=== PATIENT | female | born 1970 | race Caucasian/White ===

== ENCOUNTER → 2016-07-03 | Outpatient (CLI) | payer OTHER ==
[~2016-07-03] MED LIST: CETI10TA20 PO; DOCU100C37 PO; IBUP-1780 PO; MULT-305 PO; OMEP40CA36 PO; OMG1KC PO; OXYC-465 PO
--- NOTE | 2016-07-05 19:14 | Diagnostic Imaging Report ---
Bilateral screening mammogram. The current study was also evaluated with a Computer Aided Detection (CAD) system. INDICATION: Screening. No current complaints stated on the questionnaire. COMPARISON: 10/18/2014. FINDINGS: The breasts are composed of heterogeneously dense parenchyma which may decrease mammographic sensitivity. No mass, architectural distortion, or suspicious cluster of calcification seen. Allowing for technique and positional differences, no suspicious change is seen. IMPRESSION: Dense breasts with no definite change. ACR BI-RADS Category 2: Benign findings. Result letter will be mailed to the patient. Note: At least 10% of breast cancer is not imaged by mammography. Dictated by: Dictated on workstation # [id number]
== END ==
LOC: RAD 08:25
PROVIDERS: ATTEND Obstetrics & Gynecology
DX: Z12.31 Encounter for screening mammogram for malignant neoplasm of breast (principal)
CPT/HCPCS: 77067

== ENCOUNTER → 2017-07-25 | Outpatient (CLI) | payer OTHER ==
--- NOTE | 2017-07-25 12:04 | Diagnostic Imaging Report ---
INDICATION: Routine screening. Comparison is made with prior study from 07/03/2016 and 10/18/2014. 2-D and 3-D bilateral screening mammography was performed with CAD. The current study was also evaluated with a Computer Aided Detection (CAD) system. Both breasts are heterogeneously dense, limiting the sensitivity of mammography. No dominant mass or malignant appearing microcalcifications are identified. The axillae are unremarkable. Impression: BI-RADS category one No mammographic features suspicious for malignancy are identified. ACR BI-RADS Category 1: Negative. Result letter will be mailed to the patient. Note: At least 10% of breast cancer is not imaged by mammography. Dictated by: Dictated on workstation # [id number]
== END ==
LOC: RAD 07:33
PROVIDERS: ATTEND Obstetrics & Gynecology
DX: Z12.31 Encounter for screening mammogram for malignant neoplasm of breast (principal)
CPT/HCPCS: 77067

== ENCOUNTER → 2018-09-24 | Outpatient (CLI) | payer OTHER ==
--- NOTE | 2018-09-24 09:39 | Diagnostic Imaging Report ---
Indication: Routine screening. Comparison is made to prior mammogram 07/25/2017 and 07/03/2016. 2-D and 3-D bilateral screening mammography was performed with CAD. Both breasts remain heterogeneously dense, limiting the sensitivity of mammography. The parenchymal pattern is stable. No mass or malignant-appearing microcalcifications are seen. Axillae are unremarkable. Impression: BI-RADS category 1 No mammographic features suspicious for malignancy are identified. ACR BI-RADS Category 1: Negative. Result letter will be mailed to the patient. Note: At least 10% of breast cancer is not imaged by mammography. Dictated by: Dictated on workstation # [id number]
== END ==
LOC: RAD 07:20
PROVIDERS: ATTEND Obstetrics & Gynecology
DX: Z12.31 Encounter for screening mammogram for malignant neoplasm of breast (principal)
CPT/HCPCS: 77067

== ENCOUNTER → 2019-10-21 | Outpatient (CLI) | payer OTHER ==
[~2019-10-21] MED LIST changes: -CETI10TA20 PO; +CETI10TA21 PO; +OMEP40CA27 PO; -OMEP40CA36 PO
--- NOTE | 2019-10-21 13:28 | Diagnostic Imaging Report ---
INDICATION: Routine screening. COMPARISON: 09/24/2018 and 07/25/2017. TECHNIQUE: 2D and 3D bilateral screening mammography was performed with CAD. FINDINGS: Both breasts are heterogeneously dense, limiting the sensitivity of mammography. The parenchymal pattern is stable. No mass or malignant appearing microcalcifications are seen. The axillae are unremarkable. IMPRESSION: No mammographic features suspicious for malignancy are identified. ACR BI-RADS Category 1: Negative. Result letter will be mailed to the patient. Note: At least 10% of breast cancer is not imaged by mammography. Dictated by: Dictated on workstation # [id number]
== END ==
LOC: RAD 07:45
PROVIDERS: ATTEND Obstetrics & Gynecology
DX: Z12.31 Encounter for screening mammogram for malignant neoplasm of breast (principal)
CPT/HCPCS: 77063; 77067

== ENCOUNTER 2020-06-24 05:30 | Outpatient (RCR) | payer OTHER ==
[~2020-06-24] VITALS: Ht 154.9 cm; Wt 71.8 kg
[~2020-06-24 05:30] MED LIST changes: +ATOR10TA66 PO; -CETI10TA21 PO; +CETI10TA49 PO; +CHOL200025 PO; +CYAN500T44 PO; +FLUT9.9S NS; -OXYC-465 PO; +OXYC-556 PO
== END 2020-06-24 09:18 | disposition home or self-care (01) ==
LOC: PREOP 05:30
PROVIDERS: ATTEND Surgery
DX: Z01.812 Encounter for preprocedural laboratory examination (principal); K62.5 Hemorrhage of anus and rectum; Z87.19 Personal history of other diseases of the digestive system; Z20.822 Contact with and (suspected) exposure to COVID-19
CPT/HCPCS: 87635

== ENCOUNTER 2020-06-27 09:44 | Day surgery (SDC) | payer OTHER ==
[2020-06-27] VITALS (7 sets, daily range): BP systolic 96–125; BP diastolic 60–92
[~2020-06-27] VITALS: Ht 154.9 cm; Wt 71.8 kg
[2020-06-27] MEDS ORDERED: LACTATED RINGERS 1,000 ML IV ONE (09:59)
[2020-06-27] MEDS ORDERED: LACTATED RINGERS 1,000 ML IV STA (10:03)
[2020-06-27] MEDS ORDERED: HURRICAINE EXT TUBE (BENZOCAINE) XX PRN (10:15)
--- NOTE | 2020-06-27 11:00 | Progress Note-Pre Operative ---
Pre-Operative Progress Note H&P Reviewed The H&P was reviewed, patient examined and no changes noted. Time Seen by Provider: 10:57 Date H&P Reviewed: June 27, 2020 Time H&P Reviewed: 10:57 Pre-Operative Diagnosis: Hx of Caba's, Rectal bleed IRMA CRISOSTOMO DO June 27, 2020 11:00
[2020-06-27] MEDS ORDERED: PROPOFOL INJECTION 50 ML IV ONE (11:16)
[2020-06-27] MEDS ORDERED: MIDAZOLAM 2 MG/2 ML (VERSED) VIAL ONE (11:16)
--- NOTE | 2020-06-27 11:50 | Progress Note-Post Operative ---
Post-Operative Progess Note Surgeon (s)/Loin Puller (s) Surgeon IRMA CRISOSTOMO DO Loin Puller: none Pre-Operative Diagnosis Hx of Caba's, Rectal bleed Post-Operative Diagnosis Gastritis Gastric Polyps colon polyp diverticula int hemorrhoids anal fissure Procedure & Operative Findings Date of Procedure 06/27/20 Procedure Performed/Findings EGD with bx Colon with hot bx Anesthesia Type IV sedation by AERIAL PLANTING AND CULTIVATION MANAGER Estimated Blood Loss Estimated blood loss (mL): scant Specimens/Packing Specimens Removed antral bx body of stomach bx GE jxn bx Desc colon polyp IRMA CRISOSTOMO DO June 27, 2020 11:50
--- NOTE | 2020-06-27 11:51 | Endoscopy Discharge Instruct ---
Endo Procedure/Findings Findings 1.: Gastritis, Other Findings (Gastric polyp) 2.: Polyp 3.: Diverticulosis 4.: Internal Hemorrhoids, Other Findings (anal fissure) Discharge Instructions - Activity: You might feel a little sleepy until tomorrow. This is due to the medicine you received to relax you. Until tomorrow, you should: NOT drive a car, operate machinery or power tools. NOT drink any alcoholic beverages. NOT make any important decisions or sign importortant papers. Do not return to work until tomorrow, unless otherwise instructed. Resume previous activities tomorrow. Diet: Start by taking liquids. If you tolerate liquids, advance to solid food. 1.: EGD in 3 years 2.: Colonscopy in 5 years Notify Physician - If you experience excessive bleeding, unusual abdominal pain, fever, or chest pain, contact your doctor immediately. IRMA CRISOSTOMO DO June 27, 2020 11:51
--- NOTE | 2020-06-27 12:47 | Anesthesia-General Post-Op ---
MAC Patient Condition Mental Status/LOC: Same as Preop Cardiovascular: Satisfactory Nausea/Vomiting: Absent Respiratory: Satisfactory Pain: Controlled Complications: Absent Post Op Complications Complications None Follow Up Care/Instructions Patient Instructions None needed. Anesthesiology Discharge Order Discharge Order Patient is doing well, no complaints, stable vital signs, no apparent adverse anesthesia problems. No complications reported per nursing. EDDA HICKMAN CRNA June 27, 2020 12:47
--- NOTE | 2020-06-27 21:10 | OPERATIVE REPORT ---
DATE OF SERVICE: 06/27/2020 PREOPERATIVE DIAGNOSIS: History of Caba's esophagus and rectal bleed. POSTOPERATIVE DIAGNOSES: Gastritis, gastric polyps, colon polyps, diverticula, internal hemorrhoids and anal fissure. PROCEDURES: 1. EGD with biopsy. 2. Colonoscopy with hot biopsy. SURGEON: Jules Garrett DO FIRE FIGHTER AIRPORT: None. ANESTHESIA: IV sedation by the SUPERVISOR AIRCRAFT CLEANING. SPECIMEN: Biopsy from the antrum, biopsy from the body of stomach and biopsy from the GE junction and then biopsy of the descending colon polyp. BLOOD LOSS: Scant. FLUIDS: Per anesthesia. POSTOPERATIVE CONDITION: Stable. INDICATION FOR PROCEDURE: The patient is a 49-year-old female who has a history of Caba's esophagus, needed a workup and she had some rectal bleeding, needed a colonoscopy. FINDINGS: The patient had some gastritis in the stomach and she had some gastric polyps. In the colon, she had a polyp in the descending colon, some diverticula in the descending and sigmoid colon as well as internal hemorrhoids and what looked like an anal fissure. PROCEDURE NOTE: After informed consent was obtained, the patient was brought to the endoscopy suite, placed in bed in left lateral decubitus position. She was administered IV sedation by the SUPERVISOR AIRCRAFT CLEANING who then monitored her vitals the entire time, heart rate, blood pressure and pulse ox and we started with the EGD, placed the scope down the mouth through the esophagus into the stomach, noted some gastritis at the antrum, took a picture, pushed into the duodenum. Duodenum looked fine, took a picture. Pulled back, did a biopsy of the antrum. Retroflexed the scope. She did not really have a hiatal hernia. Did a biopsy of the body of stomach and then pulled the scope into the GE junction, did a biopsy here, pushed the scope back into the stomach, suctioned all the air out. I did see some gastric polyps down into the antrum, did look like there are fundic gland polyps. Elected to leave these alone and then pulled the scope up the esophagus and out the mouth. Switched camera, switched gloves, went down below, started the colonoscopy. Pushed all the way into about 140 cm, able to get to the cecum, took a picture of appendiceal orifice, noted the ileocecal valve and then slowly withdrew the scope insufflating, looked circumferential schafer looking at the cecum, up the ascending colon to the hepatic flexure, then down the transverse colon, splenic flexure, into the descending colon and in the descending colon, saw a polyp on a fold, took a picture of this and then did a hot biopsy of this. Continued down and saw some diverticula, took a picture and then continued into the sigmoid and into the rectum, retroflexed in rectal vault, saw some minimal internal hemorrhoids, took a picture of this, then pulled the scope out and looked at the anal canal, looked like there may have been an anal fissure. The patient tolerated the procedure. She was recovered in endoscopy suite. Job ID: [id number] DocumentID: [id number] Dictated Date: 06/27/2020 14:33:11 Manager Molecular Date: 06/27/2020 21:09:17 Dictated By: JULES GARRETT DO
== END 2020-06-27 12:45 | disposition home or self-care (01) ==
LOC: ENDO 09:44
PROVIDERS: ATTEND Surgery
DX: D12.4 Benign neoplasm of descending colon (principal); K57.30 Diverticulosis of large intestine without perforation or abscess without bleeding; K29.50 Unspecified chronic gastritis without bleeding; K21.00 Gastro-esophageal reflux disease with esophagitis, without bleeding; K31.7 Polyp of stomach and duodenum; K64.8 Other hemorrhoids; K60.2 Anal fissure, unspecified; E66.9 Obesity, unspecified; Z68.29 Body mass index [BMI] 29.0-29.9, adult; Z79.899 Other long term (current) drug therapy; Z87.19 Personal history of other diseases of the digestive system
CPT/HCPCS: 88305

== ENCOUNTER → 2020-11-16 | Outpatient (CLI) | payer OTHER ==
[~2020-11-16] MED LIST changes: -OMEP40CA27 PO; +OMEP40CA6 PO
--- NOTE | 2020-11-16 09:31 | Diagnostic Imaging Report ---
Indication: Screening. The current study was also evaluated with a Computer Aided Detection (CAD) system. 3-D Tomographic imaging was also performed. Comparison made with prior examination from 10/21/2019, 09/24/2018 and 07/25/2017. FINDINGS: Fibroglandular tissue is heterogeneously dense bilaterally. This can obscure small nodules. There is however no discrete mass, spiculated lesion or suspicious calcification identified. There are a few benign type calcifications. The skin, nipples and axilla are unremarkable. IMPRESSION: Category 2 benign findings ACR BI-RADS Category 2: Benign findings. Result letter will be mailed to the patient. Note: At least 10% of breast cancer is not imaged by mammography. Dictated by: Dictated on workstation # [id number]
== END ==
LOC: RAD 07:43
PROVIDERS: ATTEND Family Medicine
DX: Z12.31 Encounter for screening mammogram for malignant neoplasm of breast (principal)
CPT/HCPCS: 77063; 77067

== ENCOUNTER → 2021-11-24 | Outpatient (CLI) | payer OTHER ==
--- NOTE | 2021-11-24 11:23 | Diagnostic Imaging Report ---
Indication: Routine screening. Comparison is made with prior mammograms from 11/16/2020 and 10/21/2019. 2-D and 3-D bilateral screening mammography was performed with CAD. Both breasts are heterogeneously dense, limiting the sensitivity of mammography. The parenchymal pattern is stable. No mass or malignant-appearing microcalcifications are seen. Axillae are unremarkable. IMPRESSION: BI-RADS Category 1 No mammographic features suspicious for malignancy are identified. ACR BI-RADS Category 1: Negative. Result letter will be mailed to the patient. Note: At least 10% of breast cancer is not imaged by mammography. Dictated by: Dictated on workstation # [id number]
== END ==
LOC: RAD 07:45
PROVIDERS: ATTEND Family Medicine
DX: Z12.31 Encounter for screening mammogram for malignant neoplasm of breast (principal)
CPT/HCPCS: 77063; 77067

== ENCOUNTER 2022-11-08 11:18 | Emergency (ER) | payer BC ==
[~2022-11-08] VITALS: Ht 154.9 cm; Wt 73.7 kg
--- NOTE | 2022-11-08 11:41 | ED General ---
General Chief Complaint: General Problems/Pain Stated Complaint: DEHYDRATION | POSSIBLE KIDNEY STONE Nursing Triage Note: Patient c/o Lt. side back pain, sore throat, and possible dehydration. Patient denies any recent falls, Hx. of kidney stones, fevers, or N/V/D. Patient states she was sent to ER today from the clinic d/t having trace blood on her UA sample earlier this week. Patient c/o sore throat and states she choked on food recently. Patient denies any urinary symptoms. Source of Information: Patient Exam Limitations: No Limitations History of Present Illness Date Seen by Provider: Nov 08, 2022 Time Seen by Provider: 11:23 Initial Comments 52-year-old female presents to the ER with complaint of sore throat, and left flank pain. She states her doctor, Dr. Mena, sent her to the ER. She states that she is concerned she is dehydrated. She states on Saturday, she choked which is when her sore throat started. States that she has been unable to drink water due to the pain. She also reports left flank pain that radiates into the right upper abdomen. States that on Saturday when she saw Dr. Mena, there was trace blood in her urine. She denies history of falls or injury to her back, denies history of kidney stones. Denies fevers, nausea, vomiting, diarrhea, dysuria, hematuria. Past medical history includes Caba's esophagus, thyroid cancer, psoriasis, hyperlipidemia. Allergies and Home Medications Allergies Coded Allergies: Penicillins (Verified Allergy, Unknown, HIVES, 02/23/15) Patient Home Medication List Home Medication List Reviewed: Yes Atorvastatin Calcium (Atorvastatin Calcium) 10 Mg Tablet, 5 MG PO HS, (Reported) Entered as Reported by: NICKOLAS TAYLOR on 06/21/20913 Azithromycin (Zithromax) 250 Mg Tablet, 250 MG PO UD Prescribed by: Madelin Erazo on 11/08/22 1353 Cetirizine HCl (Zyrtec) 10 Mg Tablet, 10 MG PO DAILY, (Reported) Entered as Reported by: NICKOLAS TAYLOR on 02/23/15 1216 Cholecalciferol (Vitamin D3) (Vitamin D3) 50 Mcg Tablet, 50 MCG PO DAILY, (Reported) Entered as Reported by: NICKOLAS TAYLOR on 06/21/20913 Cyanocobalamin (Vitamin B-12) (B-12) 500 Mcg Tablet, 500 MCG PO DAILY, (Reported) Entered as Reported by: NICKOLAS TAYLOR on 06/21/20913 Fluticasone Propionate (Flonase Allergy Relief) 9.9 Ml [place].susp, 2 SPRAY NS DAILY, (Reported) Entered as Reported by: NICKOLAS TAYLOR on 06/21/20913 Omeprazole (Omeprazole) 40 Mg Capsule.dr, 40 MG PO DAILY, (Reported) Entered as Reported by: NICKOLAS TAYLOR on 02/23/15 1216 Review of Systems Review of Systems Constitutional: see HPI Past [place]-Huyrjb Hx Patient Social History Tobacco Use?: No Use of E-Cig and/or Vaping dev: No Substance use?: No Alcohol Use?: No Immunizations Up To Date Influenza Vaccine Up-to-Date: Yes; Up-to-Date Seasonal Allergies Seasonal Allergies: No Past Medical History Surgery/Hospitalization HX: thyroid CA. Surgeries: Yes (LEFT ARM FX, BONE GRAFT, C/S X2) Hysterectomy Respiratory: No Cardiac: No Neurological: No Reproductive Disorders: Yes Genitourinary: No Gastrointestinal: Yes Gastroesophageal Reflux Musculoskeletal: Yes Fractures Endocrine: Yes (THYROID NODULES DOESN'T REQUIRE MEDS) HEENT: No Cancer: No Psychosocial: No Integumentary: Yes Psoriasis Blood Disorders: No Family Medical History Asthma G8 BROTHER Cardiovascular disease 19 MOTHER GRANDPARENTS Cataracts GRANDPARENTS Completed stroke GRANDPARENTS Dementia GRANDPARENTS Diabetes mellitus 19 MOTHER GRANDPARENTS Glaucoma 19 MOTHER Hypertension 19 MOTHER GRANDPARENTS Prostate cancer GRANDPARENTS Thyroid disease GRANDPARENTS Physical Exam Vital Signs Vital Signs - First Documented 11/08/22 11:22 Temp 36.4 Pulse 78 Resp 16 B/P (MAP) 143/94 (110) O2 Delivery Room Air Capillary Refill : Height, Weight, BMI Height: 5'1.00" Weight: 149lbs. oz. 67.424308ve; 30.00 BMI Method: General Appearance: No Apparent Distress, WD/WN HEENT: Pharyngeal Erythema (mild), Tonsillar Exudate, Tonsillar Enlargement Respiratory: Lungs Clear, Normal Breath Sounds, No Accessory Muscle Use, No Respiratory Distress Cardiovascular: Regular Rate, Rhythm Gastrointestinal: Normal Bowel Sounds, Non Tender, Soft Back: CVA Tenderness (L); No CVA Tenderness (R); Other (Muscle tenderness left mid back) Extremity: Normal Inspection, Normal Range of Motion Neurologic/Psychiatric: Alert, No Motor/Sensory Deficits Skin: Normal Color, Warm/Dry Progress/Results/Core Measures Suspected Sepsis SIRS Temperature: Pulse: 78 Respiratory Rate: 16 Laboratory Tests 11/08/22 11:41: White Blood Count 10.3 Blood Pressure 143 /94 Mean: 110 Laboratory Tests 11/08/22 11:41: Creatinine 0.74, Platelet Count 381, Total Bilirubin 0.6 Results/Orders Lab Results Laboratory Tests Test 11/08/22 11:26 11/08/22 11:37 11/08/22 11:41 Range/Units Urine Color YELLOW Urine Clarity CLEAR Urine pH 6.5 5-9 Urine Specific [place] 1.010 L 1.016-1.022 Urine Protein NEGATIVE NEGATIVE Urine Glucose (UA) NEGATIVE NEGATIVE Urine Ketones NEGATIVE NEGATIVE Urine Nitrite NEGATIVE NEGATIVE Urine Bilirubin NEGATIVE NEGATIVE Urine Urobilinogen 0.2 < = 1.0 MG/DL Urine Leukocyte Esterase NEGATIVE NEGATIVE Urine RBC (Auto) TRACE H NEGATIVE Urine RBC RARE /HPF Urine WBC NONE /HPF Urine Squamous Epithelial Cells 0-2 /HPF Urine Crystals NONE /LPF Urine Bacteria TRACE /HPF Urine Casts NONE /LPF Urine Mucus NEGATIVE /LPF Urine Culture Indicated NO Group A Streptococcus Screen Detected H NotDetected White Blood Count 10.3 4.3-11.0 10^3/uL Red Blood Count 4.73 3.80-5.11 10^6/uL Hemoglobin 13.9 11.5-16.0 g/dL Hematocrit 42 35-52 % Mean Corpuscular Volume 88 80-99 fL Mean Corpuscular Hemoglobin 29 25-34 pg Mean Corpuscular Hemoglobin Concent 33 32-36 g/dL Red Cell Distribution Width 13.1 10.0-14.5 % Platelet Count 381 130-400 10^3/uL Mean Platelet Volume 9.9 9.0-12.2 fL Immature Granulocyte % (Auto) 0 % Neutrophils (%) (Auto) 73 42-75 % Lymphocytes (%) (Auto) 16 12-44 % Monocytes (%) (Auto) 7 0-12 % Eosinophils (%) (Auto) 3 0-10 % Basophils (%) (Auto) 0 0-10 % Neutrophils # (Auto) 7.5 1.8-7.8 10^3/uL Lymphocytes # (Auto) 1.6 1.0-4.0 10^3/uL Monocytes # (Auto) 0.7 0.0-1.0 10^3/uL Eosinophils # (Auto) 0.3 0.0-0.3 10^3/uL Basophils # (Auto) 0.0 0.0-0.1 10^3/uL Immature Granulocyte # (Auto) 0.0 0.0-0.1 10^3/uL Sodium Level 141 135-145 MMOL/L Potassium Level 3.0 L 3.6-5.0 MMOL/L Chloride Level 103 98-107 MMOL/L Carbon Dioxide Level 23 21-32 MMOL/L Anion Gap 15 H 5-14 MMOL/L Blood Urea Nitrogen 5 L 7-18 MG/DL Creatinine 0.74 0.60-1.30 MG/DL Estimat Glomerular Filtration Rate 99 BUN/Creatinine Ratio 7 Glucose Level 88 70-105 MG/DL Calcium Level 8.0 L 8.5-10.1 MG/DL Corrected Calcium 7.8 L 8.5-10.1 MG/DL Magnesium Level 2.0 1.6-2.4 MG/DL Total Bilirubin 0.6 0.1-1.0 MG/DL Aspartate Amino Transf (AST/SGOT) 35 H 5-34 U/L Alanine Aminotransferase (ALT/SGPT) 67 H 0-55 U/L Alkaline Phosphatase 106 40-136 U/L Total Protein 7.9 6.4-8.2 GM/DL Albumin 4.3 3.2-4.5 GM/DL Lipase 12 8-78 U/L My Orders Orders - MADELIN ROSE APRN Ua Culture If Indicated (11/08/22 11:23) Comprehensive Metabolic Panel (11/08/22 11:34) Lipase (11/08/22 11:34) Ed Iv/Invasive Line Start (11/08/22 11:34) Cbc With Automated Diff (11/08/22 11:34) Ns Iv 1000 Ml (Ns Iv 1000 Ml) (11/08/22 11:45) Ketorolac Injection (Ketorolac Injection (11/08/22 11:45) Rapid Strep A Screen (11/08/22 11:35) Ct Abd/Pelvis Wo(Kidney Stone) (11/08/22 11:54) Magnesium (11/08/22 12:20) Potassium Chloride (Tablet) (Potassium C (11/08/22 12:45) Medications Given in ED Vital Signs/I&O 11/08/22 11/08/22 11:22 13:28 Temp 36.4 Pulse 78 Resp 16 B/P (MAP) 143/94 (110) 129/81 O2 Delivery Room Air Capillary Refill : Blood Pressure Mean: 110 Progress Note : Progress Note Patient seen and evaluated, resting in bed, no acute distress. Based on exam and symptoms, differential diagnosis includes but is not limited to pyelonephritis, nephrolithiasis, UTI, strep throat. Work-up initiated included CBC, CMP, lipase, UA, rapid strep. IV fluids and Toradol ordered. 1321 Labs and imaging reviewed. CBC grossly normal. CMP shows decreased potassium 3.0, decreased calcium 8.0, magnesium normal at 2.0, anion gap sli ghtly elevated 15, AST and ALT slightly elevated. Urinalysis shows trace RBCs. Strep positive. CT abdomen pelvis shows no kidney stones, shows uncomplicated diverticulosis, no other acute features. Results discussed with patient. Will treat patient for strep throat with azithromycin due to penicillin allergy. Patient instructed to follow-up with her primary care provider regarding the blood in her urine. Instructed to increase her potassium and calcium in her diet. Oral potassium replacement was ordered. Discharge instructions and return precautions provided. Diagnostic Imaging Diagonstic Imaging: CT Plain Films/CT/US/NM/MRI: abdomen, pelvis Comments [facility], [place] NAME: [facility] REC#: [id number] PT STATUS: DEP ER : 1970 PHYSICIAN: MADELIN ROSE APRN ADMIT DATE: 11/08/22/ER Signed Date of Exam:11/08/22 CT ABD/PELVIS WO(KIDNEY STONE) PROCEDURE: CT urinary tract, rule out kidney stone. TECHNIQUE: Multiple contiguous axial images were obtained through the abdomen and pelvis without the use of intravenous contrast. Auto Exposure Controls were utilized during the CT exam to meet ALARA standards for radiation dose reduction. INDICATION: Left-sided flank pain and dehydration. COMPARISON: No prior studies are available for comparison. FINDINGS: The lung bases are clear. The liver and gallbladder are unremarkable. There is no biliary ductal dilatation. Pancreas and spleen are unremarkable. No adrenal mass is identified. No renal calculi are identified. No definite ureteral calculi or evidence of hydronephrosis is identified. Aorta is unremarkable. Bowel loops are nonobstructed. There is generalized colonic diverticulosis but no evidence of acute diverticulitis. No inflammatory changes are seen. There is no free fluid or fluid collection identified. The bladder is unremarkable. Uterus appears to be surgically absent. IMPRESSION: 1. No evidence of urinary tract calculi or obstruction. No acute features detected. 2. Uncomplicated diverticulosis. Dictated by: Dictated on workstation # [id number] Dict: 11/08/22 1237 Trans: 11/08/22 1548 [id number] Interpreted by: FUNMI CORDOVA MD Electronically signed by: FUNMI CORDOVA MD 11/08/22 1548 Departure Impression Primary Impression: Strep pharyngitis Additional Impressions: Hypokalemia Hypocalcemia Disposition: 01 HOME, SELF-CARE Condition: Stable Departure-Patient Inst. Decision time for Depature: 13:21 Referrals: TYREL MENA DO (PCP/Family) Primary Care Physician Patient Instructions: Sore Throat, Adult (DC) Add. Discharge Instructions: Complete full course of antibiotic as directed. Increase potassium and calcium in your diet. You may take 1000 mg of Tylenol every 8 hours as needed for pain. You may take 800 mg of ibuprofen every 8 hours with food as needed for pain. Follow-up with your primary care provider. Return for any new, concerning, or worsening symptoms. All discharge instructions reviewed with patient and/or family. Voiced understanding. Scripts Azithromycin (Zithromax) 250 Mg Tablet 250 MG PO UD, #6 TAB 0 Refills TAKE 2 TABLETS TODAY, THEN TAKE 1 TABLET DAILY FOR 4 MORE DAYS Prov: MADELIN ROSE APRN 11/08/22 Work/School Note: Work Release Form Date Seen in the Emergency Department: Nov 08, 2022 Return to Work: Nov 09, 2022 Restrictions: No Restrictions Copy Copies To 1: TYREL MENA BRITTANY R APRN Nov 08, 2022 11:41
[2022-11-08] MEDS ORDERED: KETOROLAC INJ 15 MG/ML VIAL IVP ONE (11:45)
[2022-11-08] MEDS ORDERED: NS IV 1000 ML 1,000 ML IV SCH (11:45)
[2022-11-08 11:49] LABS: BILIRUBIN,URINE NEGATIVE (NEGATIVE); CLARITY,URINE CLEAR; COLOR,URINE YELLOW; GLUCOSE, URINE (UA) NEGATIVE (NEGATIVE); KETONES,URINE NEGATIVE (NEGATIVE); NITRITE,URINE NEGATIVE (NEGATIVE); PH,URINE 6.5 (5-9); PROTEIN,URINE NEGATIVE (NEGATIVE)
[2022-11-08 11:50] LABS: BACTERIA,URINE TRACE /HPF; LEUKOCYTE ESTERASE ,URINE NEGATIVE (NEGATIVE); RBC,URINE RARE /HPF; SQUAMOUS EPITHELIAL CELL,UR 0-2 /HPF
[2022-11-08 11:53] LABS: BASOPHILS % (AUTO) 0 % (0-10); EOSINOPHILS # (AUTO) 0.3 10^3/uL (0.0-0.3); EOSINOPHILS % (AUTO) 3 % (0-10); HEMATOCRIT 42 % (35-52); HEMOGLOBIN 13.9 g/dL (11.5-16.0); LYMPHOCYTES # (AUTO) 1.6 10^3/uL (1.0-4.0); LYMPHOCYTES % (AUTO) 16 % (12-44); MEAN CORPUSCULAR HEMOGLOBIN 29 pg (25-34); MEAN CORPUSCULAR HGB CONC 33 g/dL (32-36); MEAN CORPUSCULAR VOLUME 88 fL (80-99); MEAN PLATELET VOLUME 9.9 fL (9.0-12.2); MONOCYTES # (AUTO) 0.7 10^3/uL (0.0-1.0); MONOCYTES % (AUTO) 7 % (0-12); NEUTROPHILS # (AUTO) 7.5 10^3/uL (1.8-7.8); NEUTROPHILS % (AUTO) 73 % (42-75); PLATELET COUNT 381 10^3/uL (130-400); WHITE BLOOD COUNT 10.3 10^3/uL (4.3-11.0)
[2022-11-08 12:04] LABS: ALBUMIN 4.3 GM/DL (3.2-4.5)
[2022-11-08 12:06] LABS: TOTAL PROTEIN 7.9 GM/DL (6.4-8.2)
[2022-11-08 12:08] LABS: BILIRUBIN,TOTAL 0.6 MG/DL (0.1-1.0)
[2022-11-08 12:10] LABS: CREATININE SERUM 0.74 MG/DL (0.60-1.30)
--- NOTE | 2022-11-08 12:44 | Diagnostic Imaging Report ---
PROCEDURE: CT urinary tract, rule out kidney stone. TECHNIQUE: Multiple contiguous axial images were obtained through the abdomen and pelvis without the use of intravenous contrast. Auto Exposure Controls were utilized during the CT exam to meet ALARA standards for radiation dose reduction. INDICATION: Left-sided flank pain and dehydration. COMPARISON: No prior studies are available for comparison. FINDINGS: The lung bases are clear. The liver and gallbladder are unremarkable. There is no biliary ductal dilatation. Pancreas and spleen are unremarkable. No adrenal mass is identified. No renal calculi are identified. No definite ureteral calculi or evidence of hydronephrosis is identified. Aorta is unremarkable. Bowel loops are nonobstructed. There is generalized colonic diverticulosis but no evidence of acute diverticulitis. No inflammatory changes are seen. There is no free fluid or fluid collection identified. The bladder is unremarkable. Uterus appears to be surgically absent. IMPRESSION: 1. No evidence of urinary tract calculi or obstruction. No acute features detected. 2. Uncomplicated diverticulosis. Dictated by: Dictated on workstation # [id number]
[2022-11-08] MEDS ORDERED: POTASSIUM CHLORIDE 10 MEQ TABLET PO ONE (12:45)
[2022-11-08] MEDS ORDERED: AZIT250T PO ×2 (13:23→13:53)
[2022-11-08 13:28] VITALS: BP 129/81
== END 2022-11-08 13:29 | disposition home or self-care (01) ==
LOC: EDUNIT# 11:18 → ER 11:20
DX: J02.0 Streptococcal pharyngitis (principal); E87.6 Hypokalemia; E83.51 Hypocalcemia; K57.90 Diverticulosis of intestine, part unspecified, without perforation or abscess without bleeding; Z88.0 Allergy status to penicillin
CPT/HCPCS: 36415; 74176; 80053; 81000; 83690; 83735; 85025; 87430

== ENCOUNTER → 2022-12-12 | Outpatient (CLI) | payer BC ==
[~2022-12-12] MED LIST changes: +AZIT250T PO
--- NOTE | 2022-12-12 15:33 | Diagnostic Imaging Report ---
INDICATION: Right breast density. Patient presents for additional views. Correlation is made with screening study from 11/26/2022. Unilateral right 2-D and 3-D diagnostic mammography was performed. This included spot compression CC, rolled CC as well as 90 degree lateral views. Additional views fail to demonstrate a discrete mass. The density noted in the medial right breast on the CC view appears to represent superimposed fibroglandular tissue. No suspicious calcifications are identified. IMPRESSION: Additional views fail to demonstrate a discrete mass. The patient may return to routine annual screening mammography. ACR BI-RADS Category 1: Negative. Result letter will be mailed to the patient. Note: At least 10% of breast cancer is not imaged by mammography. BI-RADS Category 1 Dictated by: Dictated on workstation # [id number]
== END ==
LOC: RAD 14:03
PROVIDERS: ATTEND Family Medicine
DX: R92.8 Other abnormal and inconclusive findings on diagnostic imaging of breast (principal)
CPT/HCPCS: 77065; G0279